=== PATIENT | male | born 1985 ===

== ENCOUNTER → 2023-06-27 | Outpatient (CLI) | payer BC ==
[2023-06-27 13:25] LABS: BASOPHILS ABSOLUTE AUTO 0.08 K/mm3 (0.00-0.23); BASOPHILS PERCENT AUTO 1 % (0-2); EOSINOPHILS ABSOLUTE AUTO 0.31 K/mm3 (0.00-0.68); EOSINOPHILS PERCENT AUTO 4 % (0-6); Hematocrit 47.3 % (37.0-53.0); Hemoglobin 15.8 g/dL (13.5-17.5); IMMATURE GRAN ABSOLUTE AUTO 0.02 K/mm3 (0.00-0.10); IMMATURE GRAN PERCENT AUTO 0 % (0-1); LYMPHOCYTES ABSOLUTE AUTO 2.31 K/mm3 (0.84-5.20); LYMPHOCYTES PERCENT AUTO 28 % (21-46); MONOCYTES ABSOLUTE AUTO 0.57 K/mm3 (0.16-1.47); MONOCYTES PERCENT AUTO 7 % (4-13); Mean Corpuscular HGB 27.6 pg (26.0-34.0); Mean Corpuscular HGB Conc 33.4 g/dL (31.5-36.5); Mean Corpuscular Volume 83 fL (80-100); Mean Platelet Volume 10.7 fL (9.1-12.4); NEUTROPHILS PERCENT AUTO 60 % (41-73); Platelet Count 325 K/mm3 (150-400); RDW Coefficient Variation 12.6 % (11.7-14.2); RDW Standard Deviation 38.1 fL (35.1-46.3); Red Blood Cell Count 5.73 M/mm3 (4.30-5.90); White Blood Cell Count 8.29 K/mm3 (4.00-11.30)
[2023-06-27 13:47] LABS: Alanine Aminotransfer (ALT/SGP 76 U/L (12-78); Albumin/Globulin Ratio 1.3 (0.8-1.8); Alk Phos 75 U/L (50-136); Anion Gap 9 mmol/L (3-11); Aspartate Aminotrans (AST/SGOT 35 U/L (12-37); Bilirubin, Total 0.4 mg/dL (0.1-1.0); Blood Urea Nitrogen 12 mg/dL (8-24); CHOL/HDL RATIO 6.5; CO2, Blood 27 mmol/L (21-32); Calcium, Blood 9.2 mg/dL (8.5-10.1); Chloride, Blood 105 mmol/L (98-108); Cholesterol 222 mg/dL (50-200); Globulin, Blood 3.1 g/dL (2.2-4.0); Glucose, Blood 106 mg/dL (70-99); HDL Cholesterol 34 mg/dL (>39); LDL/HDL RATIO 3.9; Low Density Lipoprotein Chol 131 mg/dL (0-110); Sodium, Blood 137 mmol/L (136-145); Total Protein, Blood 7.1 g/dL (6.4-8.2); Triglycerides 283 mg/dL (30-140); Very Low Density Lipoprot Chol 56 mg/dL (6-28)
[2023-06-27 13:58] LABS: Bun/Creatinine Ratio 16.9 (12.0-20.0); Creatinine, Blood 0.71 mg/dL (0.60-1.20); Glomerular Filtration Rate 123 (60-)
== END | disposition home or self-care (01) ==
LOC: LAB 08:50 → LAB SHORT 08:50
PROVIDERS: Family Medicine Adult Medicine
DX: Z13.1 Encounter for screening for diabetes mellitus (principal); I10 Essential (primary) hypertension
CPT/HCPCS: 80053; 80061; 83036; 84443; 85025